=== PATIENT | female | born 2000 | race Caucasian/White ===

== ENCOUNTER 2018-11-25 15:31 | Emergency (ER) | payer SELFPAY ==
[2018-11-25 15:48] VITALS: BP 147/74; PULSE 98; RESP 18; TEMP 36.6; O2SAT 97
--- NOTE | 2018-11-25 16:26 | W.ED.GENAD ---
Discharge Plan Disposition Patient Disposition: HOME Condition: Fair Discharge Details Chief Complaint: Cellulitis Clinical Impression: Cellulitis of arm, left Primary Care Provider: Joanne Zurita ED Provider: Juliann Hayes Home Meds and New Rx's Prescriptions: New cephalexin [Keflex] 500 mg capsule 500 mg PO QID Qty: 20 RF: 0 Discharge Instructions Instructions: Cellulitis (ED) Additional Instructions: Encourage hydration. Tylenol and/or ibuprofen as needed for discomfort. You may try topical options to help with discomfort such as heat or ice. Please take antibiotics as prescribed. Even if symptoms improve, please take the entire course. If you develop spreading of the redness, increased pain, fever/chills, increased swelling or other new/worsening symptoms please seek care urgently once again. Please begin vitamin and schedule appointment with women's wellness. Please see attached information on insurance and make phone calls tomorrow to begin establishing this. executive coordinator will reach out to you in regard to establishing a primary care physician. Discharge Data Discharge Date/Time-TO BE ENTERED AT DEPARTURE: 11/25/18 17:04 Medical Decision Making Patient 18-year-old female, accompanied by significant other, with chief complaint of erythema and pain to the left axilla and upper arm. She reports that pain began having discomfort noted redness yesterday. States that since that time the erythema has been spreading. She denies any altered sensation. States that she had her Nexplanon removed from the same arm approximately 2 weeks ago and is concerned this may be linked. Is not currently using any control. Reports she is actively trying to get . She denies any fevers or chills. No GI upset. Denies any upper respiratory symptoms. On exam, patient appears nontoxic. She has an area of erythema and warmth approximately 8 cm in diameter. The central region of this is indurated. This seems closer to the axilla than the site for the Nexplanon removal. I am concerned that this may actually be linked to her shaving rather than Nexplanon removal which is approximately 10 cm away from the site of erythema. I did ultrasound the area and did not find any fluid collections. Rather, this appears to be a superficial cellulitis. Plan to treat with antibiotics. We will first obtain a UPT UPT negative. Plan to treat with Keflex. Discussed this plan with the patient. Encouraged hydration. We discussed new/worsening symptoms when to seek care urgently once again. Advised to follow-up with primary care in 1 week if symptoms have not completely improved. All her questions and concerns were addressed and she is in agreement this plan. HPI General Mode of arrival: ambulatory. Date/Time Provider Initiated Documentation: 11/25/18 16:26. Limitations to Documentation: no limitations. Information obtained by: patient and family (accompanied by significant other). History of Present Illness 18 year old F presents to the emergency department with the chief complaint of left upper arm pain and erythema, described as moderate, with intensity rated at 7. Quality is described as aching, and is localized to the left and upper extremity. Patient reports no radiation. Patient started experiencing this day(s) (1) and it has been constant. No relieving factors improve symptom(s), No exacerbating factors reported . Patient notes rash; denies chest pain, cough, fever/chills, loss of appetite, nausea/vomiting, shortness of breath and weakness. Patient did receive the following treatments prior to arrival, none Related Data Home Medications Medication Instructions Recorded Confirmed cephalexin [Keflex] 500 mg PO QID #20 cap 11/25/18 Previous Rx's Medication Instructions Recorded cephalexin [Keflex] 500 mg PO QID #20 cap 11/25/18 Allergies Allergy/AdvReac Type Severity Reaction Status Date / Time No Known Allergies Allergy Unverified 11/25/18 15:56 General Stated Complaint: Cellulitis KATELYN: 3 Review of Systems Constitutional Reports as per HPI, Denies chills, Denies fever(s), Denies headache(s) and Denies weakness ENT Denies headache(s) Cardiovascular Reports as per HPI Respiratory Reports as per HPI and Denies cough Musculoskeletal Reports as per HPI and Denies tingling Integumentary/Breasts Reports as per HPI and Reports erythema (proximal medial LUE) Neurologic Denies headache(s), Denies tingling and Denies weakness [facility] Social History Smoking/Tobacco Use Status: Never Exam Const General: cooperative, healthy appearing, comfortable, no acute distress, well developed and well groomed Nutritional Appearance: average body habitus and well nourished Orientation: alert and awake Resp Effort & Inspection: normal respiratory effort, able to speak in complete sentences and no respiratory distress Auscultation: clear to auscultation bilaterally, no rales, no rhonchi and no wheezes Cardio Rate: regular rate Rhythm: regular rhythm Heart Sounds: S1 normal and S2 normal Skin General skin exam: erythema (circular area of erythema proximal medial LUEapproximately 7cm diameter.), no fluctuance, induration (in central area of erythema. Erythematous area warm to palp) and no mottling Neuro General: alert and awake Cognition: normal cognition Speech: speech normal Gait: normal gait Motor: muscle tone normal throughout Sensory Exam: no sensory deficits noted Extrem Left upper extremity: full ROM, normal capillary refill (normal 2+ distal pulses), no joint enlargement and shoulder/upper arm Details: tenderness (medial upper arm), swelling (soft tissue swelling at area of erythema.) and normal ROM; abnormal to inspection (erythema and warmth as above) Psych Appearance: grossly normal and well kempt Mental Status: mental status grossly normal Speech and Movement: speech and movement normal Course Vital Signs Temperature 36.6 C 11/25/18 15:48 Pulse 98 H 11/25/18 15:48 Respiratory Rate 18 11/25/18 15:48 Blood Pressure 147/74 H 11/25/18 15:48 Pulse Oximetry 97 11/25/18 15:48 Temperature 36.6 C 11/25/18 15:48 Temperature Source Tympanic 11/25/18 15:48 Pulse 98 H 11/25/18 15:48 Respiratory Rate 18 11/25/18 15:48 Respiratory Effort Non-Labored 11/25/18 15:53 Blood Pressure 147/74 H 11/25/18 15:48 Blood Pressure Position Sitting 11/25/18 15:48 Pulse Oximetry 97 11/25/18 15:48 Oxygen Delivery Method Room Air 11/25/18 15:48 Oxygen Flow Rate 0 11/25/18 15:48 Pain Level 7 11/25/18 15:48
--- NOTE | 2018-11-25 16:52 | ED.GENADUL_ITS ---
Discharge Plan Disposition Patient Disposition: HOME Condition: Fair Discharge Details Chief Complaint: Cellulitis Clinical Impression: Cellulitis of arm, left Primary Care Provider: Joanne Zurita ED Provider: Juliann Hayes Home Meds and New Rx's Prescriptions: New cephalexin [Keflex] 500 mg capsule 500 mg PO QID Qty: 20 RF: 0 Discharge Instructions Instructions: Cellulitis (ED) Additional Instructions: Encourage hydration. Tylenol and/or ibuprofen as needed for discomfort. You may try topical options to help with discomfort such as heat or ice. Please take antibiotics as prescribed. Even if symptoms improve, please take the entire course. If you develop spreading of the redness, increased pain, fever/chills, increased swelling or other new/worsening symptoms please seek care urgently once again. Please begin vitamin and schedule appointment with women's wellness. Please see attached information on insurance and make phone calls tomorrow to begin establishing this. hall coordinator will reach out to you in regard to establishing a primary care physician. Discharge Data Discharge Date/Time-TO BE ENTERED AT DEPARTURE: 11/25/18 17:04 Medical Decision Making Patient 18-year-old female, accompanied by significant other, with chief complaint of erythema and pain to the left axilla and upper arm. She reports that pain began having discomfort noted redness yesterday. States that since that time the erythema has been spreading. She denies any altered sensation. States that she had her Nexplanon removed from the same arm approximately 2 weeks ago and is concerned this may be linked. Is not currently using any control. Reports she is actively trying to get . She denies any fevers or chills. No GI upset. Denies any upper respiratory symptoms. On exam, patient appears nontoxic. She has an area of erythema and warmth approximately 8 cm in diameter. The central region of this is indurated. This seems closer to the axilla than the site for the Nexplanon removal. I am concerned that this may actually be linked to her shaving rather than Nexplanon removal which is approximately 10 cm away from the site of erythema. I did ultrasound the area and did not find any fluid collections. Rather, this appears to be a superficial cellulitis. Plan to treat with antibiotics. We will first obtain a UPT UPT negative. Plan to treat with Keflex. Discussed this plan with the patient. Encouraged hydration. We discussed new/worsening symptoms when to seek care urgently once again. Advised to follow-up with primary care in 1 week if symptoms have not completely improved. All her questions and concerns were addressed and she is in agreement this plan. HPI General Mode of arrival: ambulatory . Date/Time Provider Initiated Documentation: 11/25/18 16:26 . Limitations to Documentation: no limitations . Information obtained by: patient and family (accompanied by significant other) . History of Present Illness 18 year old F presents to the emergency department with the chief complaint of left upper arm pain and erythema, described as moderate, with intensity rated at 7. Quality is described as aching, and is localized to the left and upper extremity. Patient reports no radiation. Patient started experiencing this day(s) (1) and it has been constant. No relieving factors improve symptom(s), No exacerbating factors reported . Patient notes rash; denies chest pain, cough, fever/chills, loss of appetite, nausea/vomiting, shortness of breath and weakness. Patient did receive the following treatments prior to arrival, none Related Data Home Medications Medication Instructions Recorded Confirmed cephalexin [Keflex] 500 mg PO QID #20 cap 11/25/18 Previous Rx's Medication Instructions Recorded cephalexin [Keflex] 500 mg PO QID #20 cap 11/25/18 Allergies Allergy/AdvReac Type Severity Reaction Status Date / Time No Known Allergies Allergy Unverified 11/25/18 15:56 General Stated Complaint: Cellulitis KATELYN: 3 Review of Systems Constitutional Reports as per HPI, Denies chills, Denies fever(s), Denies headache(s) and Denies weakness ENT Denies headache(s) Cardiovascular Reports as per HPI Respiratory Reports as per HPI and Denies cough Musculoskeletal Reports as per HPI and Denies tingling Integumentary/Breasts Reports as per HPI and Reports erythema (proximal medial LUE) Neurologic Denies headache(s), Denies tingling and Denies weakness [facility] Social History Smoking/Tobacco Use Status: Never Exam Const General: cooperative, healthy appearing, comfortable, no acute distress, well developed and well groomed Nutritional Appearance: average body habitus and well nourished Orientation: alert and awake Resp Effort & Inspection: normal respiratory effort, able to speak in complete sentences and no respiratory distress Auscultation: clear to auscultation bilaterally, no rales, no rhonchi and no wheezes Cardio Rate: regular rate Rhythm: regular rhythm Heart Sounds: S1 normal and S2 normal Skin General skin exam: erythema (circular area of erythema proximal medial LUEapproximately 7cm diameter.), no fluctuance, induration (in central area of erythema. Erythematous area warm to palp) and no mottling Neuro General: alert and awake Cognition: normal cognition Speech: speech normal Gait: normal gait Motor: muscle tone normal throughout Sensory Exam: no sensory deficits noted Extrem Left upper extremity: full ROM, normal capillary refill (normal 2+ distal pulses), no joint enlargement and shoulder/upper arm Details: tenderness (medial upper arm), swelling (soft tissue swelling at area of erythema.) and normal ROM; abnormal to inspection (erythema and warmth as above) Psych Appearance: grossly normal and well kempt Mental Status: mental status grossly normal Speech and Movement: speech and movement normal Course Vital Signs Temperature 36.6 C 11/25/18 15:48 Pulse 98 H 11/25/18 15:48 Respiratory Rate 18 11/25/18 15:48 Blood Pressure 147/74 H 11/25/18 15:48 Pulse Oximetry 97 11/25/18 15:48 Temperature 36.6 C 11/25/18 15:48 Temperature Source Tympanic 11/25/18 15:48 Pulse 98 H 11/25/18 15:48 Respiratory Rate 18 11/25/18 15:48 Respiratory Effort Non-Labored 11/25/18 15:53 Blood Pressure 147/74 H 11/25/18 15:48 Blood Pressure Position Sitting 11/25/18 15:48 Pulse Oximetry 97 11/25/18 15:48 Oxygen Delivery Method Room Air 11/25/18 15:48 Oxygen Flow Rate 0 11/25/18 15:48 Pain Level 7 11/25/18 15:48
--- NOTE | 2018-11-28 08:14 | PDOC.ERCMPRO ---
Care Management Progress Note 11/28-Juliann COWART requested assistance with establishing a PCP. Patient seen in ED for cellulitis in Left arm. Patient will be following up with [facility] as she had her nexplanon removed from the same arm. Patient does have a PCP, Joanne Zurita at [facility]. Referral faxed to [facility] for f/u with patient as well.
--- NOTE | 2018-11-28 08:17 | CMPROGNOTE_ITS ---
Care Management Progress Note 11/28-Juliann COWART requested assistance with establishing a PCP. Patient seen in ED for cellulitis in Left arm. Patient will be following up with [facility] as she had her nexplanon removed from the same arm. Patient does have a PCP, Joanne Zurita at [facility]. Referral faxed to [facility] for f/u with patient as well.
== END 2018-11-25 17:04 | disposition home or self-care (01) ==
PROVIDERS: Emergency Provider Physician Assistant; PCP Nurse Practitioner Family
DX: L03.113 Cellulitis of right upper limb (principal)
CPT/HCPCS: 81025; 99283

== ENCOUNTER 2018-12-13 16:21 | Emergency (ER) | payer SELFPAY ==
[2018-12-13 16:26] VITALS: BP 134/67; PULSE 85; RESP 16; TEMP 36.5; O2SAT 97
--- NOTE | 2018-12-13 17:40 | W.ED.GENAD ---
Discharge Plan Disposition Patient Disposition: HOME Discharge Details Chief Complaint: Cellulitis Clinical Impression: Cutaneous abscess of left axilla Primary Care Provider: Cathie Maldonado ED Provider: Live Mccray Home Meds and New Rx's Prescriptions: New sulfamethoxazole-trimethoprim [Bactrim DS] 800-160 mg tablet 1 tab PO BID Qty: 19 RF: 0 No Action Vitamin 27 mg iron- 0.8 mg Tablet 1 tab PO DAILY RF: 0 Discharge Instructions Instructions: Abscess (ED) Additional Instructions: Take antibiotic as prescribed. Apply warm compresses 4 times a day for the next 1 week to encourage drainage. Please contact your primary care physician to arrange follow-up. You may also follow-up with general surgery should you have recurrent abscesses in the future. Return to the ER for any worsening or new concerning symptoms. Referrals: Orin Sewell MD [ [facility] STAFF PHYSICIAN] - Cathie Maldonado FOOT CASTER [Primary Care Provider] - Medical Decision Making 18-year-old female here with abscess of left axilla. Incision and drainage performed after informed consent provided. Plan to continue patient on Bactrim as she has a couple other early abscesses that are not amenable to incision and drainage of her right axilla. Patient was advised to stop using deodorant. He is encouraged to follow-up with her primary care physician. HPI General Mode of arrival: ambulatory. Date/Time Provider Initiated Documentation: 12/13/18 16:41. Limitations to Documentation: no limitations. Information obtained by: patient. HPI Narrative: 18-year-old female here with abscess of her left axilla. Patient notes that she was seen here and diagnosed with cellulitis 3 weeks ago. She completed course of Keflex. Symptoms improved and then recurred and developed more focal swelling. Inflammation is moderate. Described as painful. No associated fever. Related Data Home Medications Medication Instructions Recorded Confirmed vit-iron fum-folic ac 1 tab PO DAILY 12/13/18 12/13/18 [ Vitamin] sulfamethoxazole-trimethoprim 1 tab PO BID #19 tab 12/13/18 [Bactrim DS] Previous Rx's Medication Instructions Recorded sulfamethoxazole-trimethoprim 1 tab PO BID #19 tab 12/13/18 [Bactrim DS] Allergies Allergy/AdvReac Type Severity Reaction Status Date / Time No Known Allergies Allergy Unverified 12/13/18 16:28 General Stated Complaint: Cellulitis KATELYN: 4 Review of Systems Constitutional Denies fever(s) Integumentary/Breasts Reports other (Abscess left axilla) PFSH Social History Smoking/Tobacco Use Status: Never Exam Const General: cooperative and no acute distress Eyes Conjunctivae: normal conjunctivae Skin General skin exam: no rashes or lesions noted Other: 4 cm abscess left axilla, tender and fluctuant, mild surrounding erythema; few small inflamed follicles right axilla Course Vital Signs Temperature 36.5 C 12/13/18 16:26 Pulse 85 12/13/18 16:26 Respiratory Rate 16 12/13/18 16:26 Blood Pressure 134/67 12/13/18 16:26 Pulse Oximetry 97 12/13/18 16:26 Temperature 36.5 C 12/13/18 16:26 Temperature Source Skin 12/13/18 16:26 Pulse 85 12/13/18 16:26 Respiratory Rate 16 12/13/18 16:26 Respiratory Effort 12/13/18 16:26 Blood Pressure 134/67 12/13/18 16:26 Blood Pressure Position Sitting 12/13/18 16:26 Pulse Oximetry 97 12/13/18 16:26 Oxygen Delivery Method Room Air 12/13/18 16:26 Oxygen Flow Rate 0 12/13/18 16:26 Pain Level 6 12/13/18 16:26 Procedures Abscess I/D Site: Other (left axilla) Side (if applicable): Left Sedation/analgesia: None Local Anesthetic: Bupivicaine 0.5% Amount of anesthesia used (mL): 4 Technique: Incised with #11 Blade Amount of fluid expressed (mL): 4 Irrigation: Yes Packing used?: None
[2018-12-13] MEDS: Lidocaine/Epinephri/Tetracaine Topical Gel 3 ML TP (17:53)
[2018-12-13] MEDS: Bupivacaine 0.5% Pres-Free 30 ML VIAL IJ (18:00)
--- NOTE | 2018-12-13 18:55 | ED.GENADUL_ITS ---
Discharge Plan Disposition Patient Disposition: HOME Discharge Details Chief Complaint: Cellulitis Clinical Impression: Cutaneous abscess of left axilla Primary Care Provider: Cathie Maldonado ED Provider: Live Mccray Home Meds and New Rx's Prescriptions: New sulfamethoxazole-trimethoprim [Bactrim DS] 800-160 mg tablet 1 tab PO BID Qty: 19 RF: 0 No Action Vitamin 27 mg iron- 0.8 mg Tablet 1 tab PO DAILY RF: 0 Discharge Instructions Instructions: Abscess (ED) Additional Instructions: Take antibiotic as prescribed. Apply warm compresses 4 times a day for the next 1 week to encourage drainage. Please contact your primary care physician to arrange follow-up. You may also follow-up with general surgery should you have recurrent abscesses in the future. Return to the ER for any worsening or new concerning symptoms. Referrals: Orin Sewell MD [ [facility] STAFF PHYSICIAN] - Cathie Maldonado BOOK SEWING MACHINE OPERATOR [Primary Care Provider] - Medical Decision Making 18-year-old female here with abscess of left axilla. Incision and drainage performed after informed consent provided. Plan to continue patient on Bactrim as she has a couple other early abscesses that are not amenable to incision and drainage of her right axilla. Patient was advised to stop using deodorant. He is encouraged to follow-up with her primary care physician. HPI General Mode of arrival: ambulatory . Date/Time Provider Initiated Documentation: 12/13/18 16:41 . Limitations to Documentation: no limitations . Information obtained by: patient . HPI Narrative: 18-year-old female here with abscess of her left axilla. Patient notes that she was seen here and diagnosed with cellulitis 3 weeks ago. She completed course of Keflex. Symptoms improved and then recurred and developed more focal swelling. Inflammation is moderate. Described as painful. No associated fever. Related Data Home Medications Medication Instructions Recorded Confirmed vit-iron fum-folic ac 1 tab PO DAILY 12/13/18 12/13/18 [ Vitamin] sulfamethoxazole-trimethoprim 1 tab PO BID #19 tab 12/13/18 [Bactrim DS] Previous Rx's Medication Instructions Recorded sulfamethoxazole-trimethoprim 1 tab PO BID #19 tab 12/13/18 [Bactrim DS] Allergies Allergy/AdvReac Type Severity Reaction Status Date / Time No Known Allergies Allergy Unverified 12/13/18 16:28 General Stated Complaint: Cellulitis KATELYN: 4 Review of Systems Constitutional Denies fever(s) Integumentary/Breasts Reports other (Abscess left axilla) PFSH Social History Smoking/Tobacco Use Status: Never Exam Const General: cooperative and no acute distress Eyes Conjunctivae: normal conjunctivae Skin General skin exam: no rashes or lesions noted Other: 4 cm abscess left axilla, tender and fluctuant, mild surrounding erythema; few small inflamed follicles right axilla Course Vital Signs Temperature 36.5 C 12/13/18 16:26 Pulse 85 12/13/18 16:26 Respiratory Rate 16 12/13/18 16:26 Blood Pressure 134/67 12/13/18 16:26 Pulse Oximetry 97 12/13/18 16:26 Temperature 36.5 C 12/13/18 16:26 Temperature Source Skin 12/13/18 16:26 Pulse 85 12/13/18 16:26 Respiratory Rate 16 12/13/18 16:26 Respiratory Effort 12/13/18 16:26 Blood Pressure 134/67 12/13/18 16:26 Blood Pressure Position Sitting 12/13/18 16:26 Pulse Oximetry 97 12/13/18 16:26 Oxygen Delivery Method Room Air 12/13/18 16:26 Oxygen Flow Rate 0 12/13/18 16:26 Pain Level 6 12/13/18 16:26 Procedures Abscess I/D Site: Other (left axilla) Side (if applicable): Left Sedation/analgesia: None Local Anesthetic: Bupivicaine 0.5% Amount of anesthesia used (mL): 4 Technique: Incised with #11 Blade Amount of fluid expressed (mL): 4 Irrigation: Yes Packing used?: None
[2018-12-13] MEDS: Sulfameth/Trimeth DS TAB 1 TAB PO (19:00)
== END 2018-12-13 19:05 | disposition home or self-care (01) ==
PROVIDERS: Emergency Provider Student in an Organized Health Care Education/Training Program; PCP Nurse Practitioner Family
DX: L03.112 Cellulitis of left axilla (principal); L02.412 Cutaneous abscess of left axilla; Z77.22 Contact with and (suspected) exposure to environmental tobacco smoke (acute) (chronic)
CPT/HCPCS: 10060; 90471

== ENCOUNTER 2019-07-03 12:17 | Emergency (ER) | payer SELFPAY ==
[2019-07-03 12:21] VITALS: BP 138/88; PULSE 112; RESP 18; TEMP 36.6; O2SAT 98
--- NOTE | 2019-07-03 13:10 | ED.GENADUL_ITS ---
Discharge Plan Disposition Patient Disposition: HOME Condition: Stable Discharge Details Chief Complaint: RashLesion Clinical Impression: Abscess of axilla, left Primary Care Provider: None,None ED Provider: Kenyon Rodrigues Home Meds and New Rx's Prescriptions: New cephalexin 500 mg tablet 500 mg PO QID 5 Days Qty: 20 RF: 0 sulfamethoxazole-trimethoprim [Bactrim DS] 800-160 mg tablet 1 tab PO BID 5 Days Qty: 10 RF: 0 No Action Vitamin 27 mg iron- 0.8 mg Tablet 1 tab PO DAILY RF: 0 Discharge Instructions Instructions: Abscess (ED) Additional Instructions: Please take your antibiotics as prescribed and until fully completed. It is very important that you follow-up with a primary care provider or glass blowing instructor for reassessment of your chronic abscess formation under your arms as you may have hidradenitis suppurativa Referrals: Primary Care Provider [Outside] Medical Decision Making Patient presenting to the emergency department for chief complaint of left axilla abscess. Patient states that she has had these in the past and she has noted this occur over the past couple days. Patient has used specialized deodorant and stop shaving arms of the seem to worsen symptoms in the past but she is continued to get these. Patient reports that she gets them bilateral. Physical exam shows a left upper normal superior axilla abscess that is superficial. Ultrasound was utilized and showed a small fluid collection but that abscess was draining. There is concern for hidradenitis suppurativa given multiple areas of inflammation and fluid collection. Given superficial nature, draining on its own, multiple areas I do not feel that drainage is needed at this time. Patient has no systemic symptoms but given redness erythema and multiple occurrences of this I do feel the patient warrants antibiotics. Patient given both Bactrim and Keflex. Return precautions were discussed otherwise I do feel that patient needs a dermatology consult. Patient states that she is working on obtaining health insurance but afterwards she was informed that she should follow-up with primary care dermatology for reassessment and further treatment. After discussion of diagnosis and plan of care patient has no further needs, questions, or concerns and states clear understanding to return to the emergency department for any worsening symptoms. HPI General Mode of arrival: ambulatory . Date/Time Provider Initiated Documentation: 07/03/19 12:31 . Limitations to Documentation: no limitations . Information obtained by: patient and RN notes reviewed . History of Present Illness 18 year old F presents to the emergency department with the chief complaint of Abscess left axilla, described as moderate and similar to prior episodes, with intensity rated at 4. Quality is described as aching, and is localized to the left and upper extremity. Patient started experiencing this day(s) (3) and it has been constant. No relieving factors improve symptom(s), Patient notes no other symptoms.. Patient did receive the following treatments prior to arrival, none Related Data Home Medications Medication Instructions Recorded Confirmed vit-iron fum-folic ac 1 tab PO DAILY 12/13/18 07/03/19 [ Vitamin] cephalexin 500 mg PO QID 5 Days #20 tab 07/03/19 sulfamethoxazole-trimethoprim 1 tab PO BID 5 Days #10 tab 07/03/19 [Bactrim DS] Previous Rx's Medication Instructions Recorded cephalexin 500 mg PO QID 5 Days #20 tab 07/03/19 sulfamethoxazole-trimethoprim 1 tab PO BID 5 Days #10 tab 07/03/19 [Bactrim DS] Allergies Allergy/AdvReac Type Severity Reaction Status Date / Time No Known Allergies Allergy Unverified 07/03/19 12:26 General Stated Complaint: RashLesion KATELYN: 4 Review of Systems Constitutional Denies chills and Denies fever(s) Cardiovascular Denies chest pain Integumentary/Breasts Reports as per HPI, Reports furuncle and Reports skin swelling PFSH Social History Smoking/Tobacco Use Status: Never Alcohol Intake: current Alcohol Intake frequency: holidays/special occasions only Drug use: Daily Substance use type: marijuana Do you feel safe at home: Yes Do you feel safe in your relationship?: Yes Exam Const General: cooperative, no acute distress and not ill appearing Orientation: alert, awake and oriented x3 HENMT Mouth: moist mucous membranes Resp Effort & Inspection: normal respiratory effort, able to speak in complete sentences and no respiratory distress Extrem General: normal exam except as noted Left upper extremity: shoulder/upper arm Details: other (Left axilla abscess with open center and drainage. Approximately 1 cm x 2 cm) Course Vital Signs Temperature 36.6 C 07/03/19 12:21 Pulse 112 H 07/03/19 12:21 Respiratory Rate 18 07/03/19 12:21 Blood Pressure 138/88 07/03/19 12:21 Pulse Oximetry 98 07/03/19 12:21 Temperature 36.6 C 07/03/19 12:21 Temperature Source Skin 07/03/19 12:21 Pulse 112 H 07/03/19 12:21 Respiratory Rate 18 07/03/19 12:21 Respiratory Effort Non-Labored 07/03/19 12:25 Blood Pressure 138/88 07/03/19 12:21 Blood Pressure Position Sitting 07/03/19 12:21 Pulse Oximetry 98 07/03/19 12:21 Oxygen Delivery Method Room Air 07/03/19 12:21 Oxygen Flow Rate 0 07/03/19 12:21
[2019-07-03 13:32] VITALS: BP 123/78; PULSE 102; RESP 16; O2SAT 98
== END 2019-07-03 13:32 | disposition home or self-care (01) ==
PROVIDERS: Emergency Provider Nurse Practitioner Family
DX: L02.412 Cutaneous abscess of left axilla (principal)
CPT/HCPCS: 99284